=== PATIENT | female | born 1980 | race Caucasian/White ===

== ENCOUNTER 2016-12-03 07:42 | Inpatient (IN) | payer BC, OTHER ==
[~2016-12-03] VITALS: Ht 175.3 cm; Wt 63.6 kg
[2016-12-03] VITALS (20 sets, daily range): BP systolic 120–140; BP diastolic 66–88; PULSE 59–85; TEMP 98.1–99.4
[2016-12-03] MEDS ORDERED: COLACE 100100 MG/CAP PO (08:16)
[2016-12-03] MEDS ORDERED: NORCO 325 MG-51 TAB PO (08:17)
[2016-12-03] MEDS ORDERED: FLAGYL500 MG IV (08:18)
[2016-12-03] MEDS ORDERED: LEVAQUIN 7750 MG/151 IV (08:19)
[2016-12-03 14:46] LABS: BASO % 0.4 % (0.0-2.0); EOS # 0.1 (0.0-0.7); EOS % 1.1 % (0-4.0); GRAN # 6.1 (1.4-6.5); GRAN % 76.5 % (42.2-75.2); LYMPH # 1.2 (1.2-3.4); LYMPH % 15.3 % (20.0-51.0); MEAN CELL VOLUME 87 fl (80.0-100.0); MEAN CORPUSCULAR HGB CONC 34 g/dl (33.0-37.0); MEAN PLATELET VOLUME 8.6 fl (7.4-10.4); MONO # 0.5 (0.1-0.6); MONO % 6.2 % (1.7-9.3); PLATELET COUNT 347 K/mm3 (130-400); RED BLOOD COUNT 3.96 M/mm3 (4.10-5.30); REDCELL DISTRIBUTION WIDTH-CV 12.9 % (11.5-14.5)
[2016-12-03 14:48] LABS: ADJUSTED CALCIUM 9.3 mg/dL (8.4-10.2); ALANINE AMINOTRANSFERASE 30 U/L (9-52); ALBUMIN 3.1 gm/dL (3.5-5.0); ALKALINE PHOSPHATASE 71 U/L (50-136); ANION GAP 12 mmol/L (7-16); BILIRUBIN,TOTAL 0.6 mg/dL (0.0-1.0); CALCIUM 8.6 mg/dL (8.4-10.2); CARBON DIOXIDE 18 mmol/L (22-30); CHLORIDE 109 mmol/L (98-107); CREATININE, serum 0.59 mg/dL (0.52-1.25); GLUCOSE 88 mg/dL (74-106); HEMATOCRIT 34.3 % (37.0-47.0); HEMOGLOBIN 11.5 g/dl (12.5-16.0); MEAN CORPUSCULAR HEMOGLOBIN 29 pg (27.0-31.0); POTASSIUM 3.4 mmol/L (3.4-5.0); SODIUM 139 mmol/L (137-145); TOTAL PROTEIN 6.5 gm/dL (6.4-8.2)
[2016-12-03 14:55] LABS: BLOOD UREA NITROGEN < 2 mg/dL (7-17)
[2016-12-03 19:57] LABS: CHLAMYDIA/TRACH by PCR Female Not Detected; NEISSERIA GON by PCR Female Not Detected
[2016-12-04 01:22] VITALS: BP 140/81; PULSE 81; TEMP 97.7
[2016-12-04 05:29] VITALS: BP 133/70; PULSE 115; TEMP 98.1
[2016-12-04 06:58] LABS: BASO # 0.1 (0.0-0.2); BASO % 0.6 % (0.0-2.0); EOS # 0.2 (0.0-0.7); GRAN # 6.3 (1.4-6.5); GRAN % 72.4 % (42.2-75.2); LYMPH # 1.6 (1.2-3.4); LYMPH % 18.3 % (20.0-51.0); MEAN CELL VOLUME 86 fl (80.0-100.0); MEAN CORPUSCULAR HGB CONC 34 g/dl (33.0-37.0); MEAN PLATELET VOLUME 8.6 fl (7.4-10.4); MONO # 0.5 (0.1-0.6); MONO % 6.1 % (1.7-9.3); PLATELET COUNT 343 K/mm3 (130-400); RED BLOOD COUNT 3.99 M/mm3 (4.10-5.30); REDCELL DISTRIBUTION WIDTH-CV 12.8 % (11.5-14.5); WHITE BLOOD COUNT 8.6 K/mm3 (4.8-10.8)
[2016-12-04 07:02] LABS: HEMATOCRIT 34.2 % (37.0-47.0); HEMOGLOBIN 11.5 g/dl (12.5-16.0); MEAN CORPUSCULAR HEMOGLOBIN 29 pg (27.0-31.0)
[2016-12-04 09:57] VITALS: BP 128/89; PULSE 65; TEMP 97.1
[2016-12-04 13:39] VITALS: BP 125/73; PULSE 64; TEMP 98.5
[2016-12-04 17:46] VITALS: BP 133/80; PULSE 48; TEMP 98.8
[2016-12-04 21:49] VITALS: BP 128/77; PULSE 51; TEMP 98.5
[2016-12-05 05:02] VITALS: BP 115/64; PULSE 54; TEMP 97.5
[2016-12-05] MEDS ORDERED: FLAGYL500 MG PO (08:38)
[2016-12-05] MEDS ORDERED: LEVAQUIN 750MG750 M1 PO (08:38)
[2016-12-05 09:15] LABS: ANION GAP 12 mmol/L (7-16); CALCIUM 8.6 mg/dL (8.4-10.2); CARBON DIOXIDE 19 mmol/L (22-30); CHLORIDE 108 mmol/L (98-107); GLUCOSE 116 mg/dL (74-106); POTASSIUM 3.1 mmol/L (3.4-5.0); SODIUM 139 mmol/L (137-145)
[2016-12-05 09:31] LABS: BLOOD UREA NITROGEN < 2 mg/dL (7-17)
[2016-12-05 09:57] VITALS: BP 130/70; PULSE 58; TEMP 98
[2016-12-05] MEDS ORDERED: K-DUR 10 MEQ T10 MEQ PO (12:00)
== END 2016-12-05 13:40 | disposition home or self-care (01) | DRG 357 ==
LOC: COL.RAD 07:42 → SURG 11:34
PROVIDERS: Family Medicine; Nurse Practitioner Family; Obstetrics & Gynecology
PROC: 0W9J3ZX Drainage of Pelvic Cavity, Percutaneous Approach, Diagnostic (ICD-10-PCS; principal; 2016-12-03)
DX: K57.20 Diverticulitis of large intestine with perforation and abscess without bleeding (principal); K52.1 Toxic gastroenteritis and colitis; E87.6 Hypokalemia; T36.1X5A Adverse effect of cephalosporins and other beta-lactam antibiotics, initial encounter
CPT/HCPCS: 99222-AI; 99232-AI; 99239; C1729; J1650; J1956; J2250; J2405; J3010; J7030; Q9967

== ENCOUNTER 2017-01-01 15:30 | Inpatient (IN) | payer BC, OTHER ==
[~2017-01-01] VITALS: Ht 175.3 cm; Wt 59.3 kg
[~2017-01-01 15:30] MED LIST changes: -ROXICODONE 55 MG/TAB PO; -TYLENOL 325MG325 MG PO
[2017-02-04] VITALS (12 sets, daily range): BP systolic 99–129; BP diastolic 53–86; PULSE 66–90; TEMP 97.8–98.2
[2017-02-05 01:15] VITALS: BP 101/53; PULSE 60; TEMP 98.7
[2017-02-05 05:22] VITALS: BP 94/54; PULSE 59; TEMP 98.1
[2017-02-05 10:23] VITALS: BP 100/54; PULSE 67; TEMP 98.1
[2017-02-05 14:32] VITALS: BP 97/59; PULSE 78; TEMP 97.8
[2017-02-05 18:22] VITALS: BP 104/63; PULSE 68; TEMP 98
[2017-02-05 22:27] VITALS: BP 99/49; PULSE 68; TEMP 98.8
[2017-02-06 04:48] VITALS: BP 99/57; PULSE 67; TEMP 99.7
[2017-02-06 10:02] VITALS: BP 110/64; PULSE 61; TEMP 97.9
[2017-02-06] MEDS ORDERED: ROXICODONE 55 MG/TAB PO (12:34)
[2017-02-06] MEDS ORDERED: TYLENOL 325MG325 MG PO (12:36)
== END 2017-02-06 14:06 | disposition home or self-care (01) | DRG 330 ==
LOC: INPTSU 02-04 05:26 → SURG 02-04 07:30
PROVIDERS: Surgery
PROC: 8E0W4CZ Robotic Assisted Procedure of Trunk Region, Percutaneous Endoscopic Approach (ICD-10-PCS; 2017-02-04)
PROC: 0DBN4ZZ Excision of Sigmoid Colon, Percutaneous Endoscopic Approach (ICD-10-PCS; principal; 2017-02-04 07:30)
DX: K57.20 Diverticulitis of large intestine with perforation and abscess without bleeding (principal)
CPT/HCPCS: A4315; A9284; C1713; E0710; J0690; J1100; J1170; J1650; J1885; J2175; J2270; J2370; J2405; J2704; J3010; J7030; J7050; J7120

== ENCOUNTER → 2017-01-01 | Outpatient (CLI) | payer BC, OTHER ==
[~2017-01-01] MED LIST: COLACE 100100 MG/CAP PO; FLAGYL500 MG IV; FLAGYL500 MG PO; K-DUR 10 MEQ T10 MEQ PO; LEVAQUIN 750MG750 M1 PO; LEVAQUIN 7750 MG/151 IV; NORCO 325 MG-51 TAB PO; ROXICODONE 55 MG/TAB PO; TYLENOL 325MG325 MG PO
== END ==
LOC: COL.RAD 07:58
DX: K57.92 Diverticulitis of intestine, part unspecified, without perforation or abscess without bleeding (principal)
CPT/HCPCS: Q9967